=== PATIENT | female | born 1940 | race Two or more races ===

== ENCOUNTER 2017-03-10 05:46 | Day surgery (SDC) | payer MEDICARE, OTHER ==
[2017-03-10] VITALS (11 sets, daily range): BP systolic 122–151; BP diastolic 64–75
[~2017-03-10] VITALS: Ht 160 cm; Wt 72.6 kg
[2017-03-10] MEDS ORDERED: Iothalamate Meglumine 60% 30ML INJ ONE (06:29)
[2017-03-10] MEDS ORDERED: VOLTAREN100 G1 TP (06:55)
[2017-03-10] MEDS ORDERED: LEVOTHYROXINE75 MCG ORAL (06:55)
[2017-03-10] MEDS ORDERED: ATORVASTATIN CA40 MG ORAL (06:55)
[2017-03-10] MEDS ORDERED: JANUVIA50 MG ORAL (06:55)
[2017-03-10] MEDS ORDERED: DIOVAN160 MG ORAL (06:55)
[2017-03-10] MEDS ORDERED: LR 1000ml ONE (07:00)
[2017-03-10] MEDS ORDERED: Cefepime HCl 1 GM in D5W 55 ML IVPB ONE (07:00)
[2017-03-10] MEDS ORDERED: ePHEDrine 50mg/ml Inj ONE (07:00)
[2017-03-10] MEDS ORDERED: Propofol 200mg/20ml IV ONE (07:00)
[2017-03-10] MEDS ORDERED: TRAMADOL HCL50 MG ORAL (07:00)
[2017-03-10] MEDS ORDERED: Lidocaine 1% MPF 10mg/ml 5ml ONE (07:00)
[2017-03-10] MEDS ORDERED: VITAMIN E400 UNI6 PO (07:00)
[2017-03-10] MEDS ORDERED: RESTASIS1 EACH BOTH EYES (07:00)
[2017-03-10] MEDS ORDERED: Metoclopramide 10mg/2ml Inj ONE (07:00)
[2017-03-10] MEDS ORDERED: CENTRUM COMPLE1 EAC1 PO (07:00)
[2017-03-10] MEDS ORDERED: CALCIUM500 M2 PO (07:00)
[2017-03-10] MEDS ORDERED: ASPIR-LOW81 MG ORAL (07:00)
[2017-03-10] MEDS ORDERED: fentaNYL 100 mcg/2 mL IV ONE (07:00)
[2017-03-10] MEDS ORDERED: Cefepime 1gm vial ONE (07:09)
--- NOTE | 2017-03-10 07:11 | Anethesia Preoperative Eval ---
Anesthesia Pre-op PMH/ROS General Date of Evaluation: Mar 10, 2017 Time of Evaluation: 07:10 Anesthesiologist: Oneil ASA Score: ASA 2 Mallampati Score Class I : Soft palate, uvula, fauces, pillars visible Class II: Soft palate, uvula, fauces visible Class III: Soft palate, base of uvula visible Class IV: Only hard plate visible Mallampati Classification: Class III Surgeon: Doreen Diagnosis: Kidney stones Surgical Procedure: ESWL Anesthesia History: none Family History: no anesthesia problems Allergies: Coded Allergies: No Known Allergies (Unverified , 03/09/17) Medications: see eMAR Past Medical History Cardiovascular: Reports: HTN Pulmonary: Denies: asthma, COPD, ROYAL, other Gastrointestinal/Genitourinary: Denies: GERD, CRI, ESRD, other Neurologic/Psychiatric: Denies: dementia, CVA, depression/anxiety, TIA, other Endocrine: Reports: DM, hypothyroidism HEENT: Denies: cataract (L), cataract (R), glaucoma, KLAMATH (L), KLAMATH (R), other Hematology/Immune: Denies: anemia, DVT, bleeding disorder, other Musculoskeletal/Integumentary: Denies: OA, RA, DJD, DDD, edema, other Other: obesity, other - Breast ca PSxH Narrative: breast surgery Anesthesia Pre-op Phys. Exam Physician Exam normal Constitutional: NAD Neurologic: CN 2-12 intact Cardiovascular: RRR Respiratory: CTA Gastrointestinal: S/NT/ND Airway Exam Mallampati Score: Class II MO: full Neck: thick TMD: 1fb ROM: full Dentures: upper Anesthesia Pre-op A/P Studies Pre-op Studies: EKG - sr Risk Assessment & Plan Assessment: denies changes in health Plan: general LMA Status Change Before Surgery: No Pre-Antibiotics Drug: Cefepime Given Within 1 Hr of Incision: Yes Time Given: 07:45 JULEITA VELASQUEZ CRNA Mar 10, 2017 07:11
--- NOTE | 2017-03-10 07:16 | Pre-Procedure Note/Attestation ---
Pre-Procedure Note/Attestation Complete Prior to Procedure Planned Procedure: bilateral Procedure Narrative: cystoscopy, right or left ureteroscopy, laser and shockwave lithotripsy, ureteral stent Indications for Procedure Pre-Operative Diagnosis: bilateral renal calculi Attestation I attest that I discussed the nature of the procedure; its benefits; risks and complications; and alternatives (and the risks and benefits of such alternatives ), prior to the procedure, with the patient (or the patient's legal inside outside sales representative). I attest that, if there was a reasonable possibility of needing a blood transfusion, the patient (or the patient's legal inside outside sales representative) was given the [facility] standardized written summary, pursuant to the [place] Blood Safety Act ([place] Health and Safety Code # 1645, as amended). I attest that I re-evaluated the patient just prior to the surgery and that there has been no change in the patient's H&P, except as documented below: n/a ARASH DE LA PAZ Mar 10, 2017 07:16
--- NOTE | 2017-03-10 07:18 | Urology Progress Note ---
Assessment/Plan Assessment/Plan hx of nephrolithiasis LUTS hematuria plan litho today d/w pt fully plan one side today, other side later Subjective Allergies: Coded Allergies: No Known Allergies (Unverified , 03/09/17) Subjective feels fair, for lithotripsy today, has bilateral stones, feels more discomfort on the right side Objective Last 24 Hour Vital Signs Date Time Temp Pulse Resp B/P (MAP) Pulse Ox O2 Delivery O2 Flow Rate FiO2 03/10/17 06:50 97.9 66 20 122/68 98 Room Air Height (Feet): 5 Height (Inches): 3.00 Weight (Pounds): 160 Objective exam stable ARASH DE LA PAZ Mar 10, 2017 07:18
[2017-03-10] MEDS ORDERED: Sterile Water For Irrig 2000ml IRRIG ONE (08:12)
[2017-03-10] MEDS ORDERED: fentaNYL 100 mcg/2 mL IV PRN (08:30)
[2017-03-10] MEDS ORDERED: Metoclopramide 10mg/2ml Inj IVP PRN (08:30)
--- NOTE | 2017-03-10 08:36 | Brief Operative Note ---
Immediate Post Operative Note Operative Note Pre-op Diagnosis: bilateral renal calculi Procedure: cystoscopy with right ureteroscopy, ureteral stent, ESWL Post-op Diagnosis: same as pre-op Surgeon: karen Anesthesiologist: mu Specimen: none Complications: none Condition: stable Fluids: saline Estimated Blood Loss: minimal Drains: none Implant(s) used?: Yes - 6f x 24 cm right ureteral JJ stent ARASH DE LA PAZ Mar 10, 2017 08:36
--- NOTE | 2017-03-10 10:32 | 48 Hour Post Anesthesia Eval ---
Post Anesthesia Evaluation Procedure: ESWL Date of Evaluation: Mar 10, 2017 Time of Evaluation: 10:32 Blood Pressure Systolic: 129 0: 66 Pulse Rate: 78 Respiratory Rate: 14 O2 Sat by Pulse Oximetry: 100 Airway: patent Nausea: No Vomiting: No Hydration Status: adequate Cardiopulmonary Status: stable Mental Status/LOC: patient returned to baseline Post-Anesthesia Complications: none Follow-up care needed: N/A JULIETA VELASQUEZ CRNA Mar 10, 2017 10:32
--- NOTE | 2017-03-10 10:33 | Immediate Post-Op Evaluation ---
Immediate Post-Op Evalulation Immediate Post-Op Evalulation Procedure: ESWL Date of Evaluation: Mar 10, 2017 Time of Evaluation: 08:50 Blood Pressure Systolic: 121 Blood Pressure Diastolic: 70 Pulse Rate: 74 Respiratory Rate: 14 O2 Sat by Pulse Oximetry: 100 Pain Score (1-10): 0 Nausea: No Vomiting: No Complications none Patient Status: awake, reacts, patent Hydration Status: adequate Drug: ancef Given Within 1 Hr of Incision: Yes Time Given: 07:30 JULIETA VELASQUEZ CRNA Mar 10, 2017 10:33
--- NOTE | 2017-03-10 20:01 | Operative Note - Dictated ---
DATE OF OPERATION: 03/10/2017 PREOPERATIVE DIAGNOSIS: Bilateral renal calculi. POSTOPERATIVE DIAGNOSIS: Bilateral renal calculi. PROCEDURE PERFORMED: Cystoscopy, right ureteroscopy, stent placement, and right shockwave lithotripsy. OPERATING SURGEON: Parminder Logan M.D. HOSE FINISHER: Ms. Riggs. ANESTHESIA: General. INDICATION FOR PROCEDURE: This is a pleasant 76-year-old female. She has history of bilateral renal calculi. She had multiple stones on each side. Her films were reviewed. Options were discussed with the patient and she wanted to proceed with treatment. I did tell her that we will do the treatment in staggered fashion starting with one side and doing the other side at a later time. She was complaining of some vague discomfort which was more on the right side. As such, the decision was made to proceed with treatment of the right-sided stones. The nature of the procedure including possible risks and complications of bleeding, infection, anesthesia, damage to the urethra, bladder, and ureter and need for further surgery were discussed. No guarantees were given or implied. FINDINGS: The patient had 2 visible stones on the right side, both of which were treated. PROCEDURE IN DETAIL: An informed consent was obtained from the patient. The patient was brought to the operating room and placed in supine position. Successful general anesthesia was induced. The patient was then placed in modified dorsal lithotomy position and her genitalia was prepped and draped in the usual sterile fashion. Preoperative IV antibiotics were administered. Time-out was performed. On whipped topping supervisor fluoroscopy, the stones were visible. At this point, cystoscopy was performed and the bladder was inspected. There were no lesions. The right ureteral orifice was identified and cannulated with an open-end catheter and FiberWire was then passed up. Because she was having some pain on the right side, I wanted to make sure if there were any stones in the ureter. As such, ureteroscopy was then performed and I inspected the whole length of the ureter and I did not see any stones along the length. There was some stenosis in the ureter, which was dilated passing the ureteroscope. I did not inject any contrast to obscure the stones and at this point, a 6-[place] x 24 cm double-J stent was into the right collecting system. It was in good position with a good curl in the kidney as well as in the bladder. A small string was noted at the bladder and Cardozo was placed. A large stone in the renal pelvis which was a little over a centimeter was then focused in the focal point of the shockwave generator, which was and shock waves were delivered. About 1500 shock waves were delivered to this stone and it pulverized completely. There was another stone that was in the upper pole, which was also focused and that was treated with 500 shock waves for a total of 2000 shock waves. At the end of the procedure, there were no other visible fragments. In the middle of the shocking, 10 mg of Lasix was given to flush out the stones. At the end of the procedure, the patient was awakened and taken to the recovery room in stable condition. Blood loss was minimal. No complications. Parminder Logan M.D. DR: CHUY JOB#: [id number] CC:
== END 2017-03-10 11:20 | disposition home or self-care (01) ==
LOC: SUR 05:46
DX: N20.0 Calculus of kidney (principal); I10 Essential (primary) hypertension; E11.9 Type 2 diabetes mellitus without complications; E03.9 Hypothyroidism, unspecified; Z85.3 Personal history of malignant neoplasm of breast; E78.00 Pure hypercholesterolemia, unspecified; Z79.82 Long term (current) use of aspirin
CPT/HCPCS: 52356; 82962; J0692; J1940; J2405; J2704; J2765; J3010; J7120; 94003; 94150